=== PATIENT | male | born 1955 | race African-American/Black ===

== ENCOUNTER 2016-11-04 13:14 | Inpatient (IN) | payer OTHER ==
[~2016-11-04] VITALS: Ht 188 cm; Wt 109.2 kg
[~2016-11-04 13:14] MED LIST: ASPI-556 PO; ATEN25 PO; BUPR150T3 PO; CABE0.5T2 PO; ESCI20TA PO; HYDR10 PO; POTA-9 PO; ZOLP10 PO
[2016-11-04] MEDS ORDERED: LOSA50TA37 PO (13:41)
[2016-11-04] MEDS ORDERED: SPIR25 PO (13:41)
[2016-11-04] MEDS ORDERED: AMLO-512 PO (13:41)
[2016-11-04] MEDS ORDERED: ATEN50TA PO (13:41)
[2016-11-04 14:11] LABS: BASOPHILS % (AUTO) 0.6 % (0.0-2.0); EOSINOPHILS % (AUTO) 4.3 % (1.0-6.0); HEMATOCRIT 37.6 % (41-53); HEMOGLOBIN 12.4 g/dL (13.5-17.5); LYMPHOCYTES # (AUTO) 1.1 K/uL (1.0-4.8); LYMPHOCYTES % (AUTO) 22.1 % (22.0-44.0); MEAN CORPUSCULAR HEMOGLOBIN 30.4 pg (26.0-34.0); MEAN CORPUSCULAR VOLUME 92 fL (80-100); MONOCYTES # (AUTO) 0.6 K/uL (0.1-1.0); MONOCYTES % (AUTO) 12.3 % (2.0-9.0); NEUTROPHILS # (AUTO) 3.1 K/uL (1.8-7.7); NEUTROPHILS % (AUTO) 60.7 % (40.0-70.0); PLATELET COUNT (AUTO) 223 K/uL (150-450); RED BLOOD CELL COUNT(AUTO) 4.08 MIL/uL (4.50-5.90); RED CELL DISTRIBUTION WIDTH 14.7 % (11.5-14.5); WHITE BLOOD COUNT (AUTO) 5.1 K/uL (4.5-11.0)
[2016-11-04 14:23] LABS: PROTHROMBIN TIME 10.4 SEC (9.4-11.6)
[2016-11-04 14:30] LABS: ANION GAP 8 mmol/L (8-16); CALCIUM, TOTAL 9.5 mg/dL (8.8-10.5); CARBON DIOXIDE 27 mmol/L (22-29); CHLORIDE 105 mmol/L (98-107); CREATININE 1.58 mg/dL (0.60-1.30); GLOMERULAR FILTR. RATE CALC 54 mL/min (>60); POTASSIUM 3.7 mmol/L (3.5-5.1); SODIUM SERUM 140 mmol/L (136-145); UREA NITROGEN, BLOOD 33 mg/dL (7-18)
[2016-11-04 14:34] LABS: B-TYPE NATRIURETIC PEPTIDE 19 pg/mL (0-100)
[2016-11-04 14:54] LABS: ALANINE AMINOTRANSFERASE 18 U/L (12-78); ALBUMIN 3.6 g/dL (3.4-5.0); ASPARTATE AMINOTRANSFERASE 15 U/L (15-37); BILIRUBIN,TOTAL 0.2 mg/dL (0.1-1.0); CREATINE KINASE, TOTAL 214 U/L (39-308); TOTAL PROTEIN, SERUM 7.5 g/dL (6.4-8.2)
[2016-11-04] MEDS ORDERED: 0.9% SODIUM CHLORIDE 10 ML SYRINGE IVP PRN (15:45)
[2016-11-04] MEDS ORDERED: ACETAMINOPHEN 325 MG TABLET PO PRN ×2 (15:45→18:30)
[2016-11-04] MEDS ORDERED: ONDANSETRON HCL 4 MG/2 ML VIAL IVP PRN ×2 (15:45→18:30)
[2016-11-04 15:47] LABS: APPEARANCE,URINE CLEAR (CLEAR); GLUCOSE, URINE (UA) NEGATIVE (NEGATIVE); KETONES,URINE NEGATIVE (NEGATIVE); LEUKOCYTE ESTERASE ,URINE NEGATIVE (NEGATIVE); OCCULT BLOOD,URINE NEGATIVE (NEGATIVE); PROTEIN,URINE NEGATIVE (NEGATIVE)
[2016-11-04 15:52] LABS: ADD UA MICROSCOPIC NO
[2016-11-04] MEDS ORDERED: KDUR20 PO (15:54)
[2016-11-04] MEDS ORDERED: OxyCODONE HCL/ACETAMINOPHEN 5-325 MG TABLET PO PRN (18:30)
[2016-11-04] MEDS ORDERED: BISACODYL 10 MG RECTAL RECTAL SUPPOSITORY PR PRN (18:30)
[2016-11-04] MEDS ORDERED: MAGNESIUM HYDROXIDE SUSPENSION 30 ML UDCUP PO PRN (18:30)
[2016-11-04] MEDS ORDERED: ZOLPIDEM TARTRATE 10 MG TABLET PO PRN (18:30)
[2016-11-04 21:08] VITALS: BP 153/103
[2016-11-04] MEDS: HydrALAZINE HCL 10 MG TABLET PO SCH (21:17)
[2016-11-04 23:25] VITALS: BP 148/89
[2016-11-04] MEDS: HEPARIN SODIUM,PORCINE 5,000 UNITS/ML VIAL SQ SCH (23:57)
[2016-11-05] VITALS (8 sets, daily range): BP systolic 132–157; BP diastolic 64–100
[2016-11-05] MEDS ORDERED: INFLUENZA VIRUS VACCINE QVS 2016-17 (3YR+)/PF 60 MCG/0.5 ML SYRINGE IM ONE (05:15)
[2016-11-05 06:41] LABS: BASOPHILS % (AUTO) 0.6 % (0.0-2.0); EOSINOPHILS % (AUTO) 5.7 % (1.0-6.0); HEMATOCRIT 37.8 % (41-53); HEMOGLOBIN 12.2 g/dL (13.5-17.5); LYMPHOCYTES # (AUTO) 1.6 K/uL (1.0-4.8); LYMPHOCYTES % (AUTO) 34.5 % (22.0-44.0); MEAN CORPUSCULAR HEMOGLOBIN 29.9 pg (26.0-34.0); MEAN CORPUSCULAR HGB CONC 32.2 G/dL (31.0-37.0); MEAN CORPUSCULAR VOLUME 93 fL (80-100); MONOCYTES # (AUTO) 0.7 K/uL (0.1-1.0); MONOCYTES % (AUTO) 14.5 % (2.0-9.0); NEUTROPHILS % (AUTO) 44.7 % (40.0-70.0); PLATELET COUNT (AUTO) 207 K/uL (150-450); RED BLOOD CELL COUNT(AUTO) 4.07 MIL/uL (4.50-5.90); RED CELL DISTRIBUTION WIDTH 14.7 % (11.5-14.5); WHITE BLOOD COUNT (AUTO) 4.6 K/uL (4.5-11.0)
[2016-11-05 07:21] LABS: ALANINE AMINOTRANSFERASE 18 U/L (12-78); ALBUMIN 3.3 g/dL (3.4-5.0); ANION GAP 7 mmol/L (8-16); ASPARTATE AMINOTRANSFERASE 13 U/L (15-37); BILIRUBIN,TOTAL 0.4 mg/dL (0.1-1.0); CALCIUM, TOTAL 9.1 mg/dL (8.8-10.5); CARBON DIOXIDE 29 mmol/L (22-29); CHLORIDE 104 mmol/L (98-107); CREATININE 1.28 mg/dL (0.60-1.30); GLOMERULAR FILTR. RATE CALC > 60 mL/min (>60); POTASSIUM 3.5 mmol/L (3.5-5.1); SODIUM SERUM 140 mmol/L (136-145); TOTAL PROTEIN, SERUM 7.2 g/dL (6.4-8.2); UREA NITROGEN, BLOOD 23 mg/dL (7-18)
[2016-11-05] MEDS ORDERED: ATENOLOL 50 MG TABLET PO SCH (09:00)
[2016-11-05] MEDS: HEPARIN SODIUM,PORCINE 5,000 UNITS/ML VIAL SQ SCH ×2 (09:54→23:40)
[2016-11-05] MEDS: LOSARTAN POTASSIUM 50 MG TABLET PO SCH (09:54)
[2016-11-05] MEDS: AmLODIPine BESYLATE 10 MG TABLET PO SCH (09:54)
[2016-11-05] MEDS: ASPIRIN 81 MG EC TABLET PO SCH (09:54)
[2016-11-05] MEDS: PANTOPRAZOLE SODIUM 40 MG DR TABLET PO SCH (09:54)
[2016-11-05] MEDS: BuPROPion HCL 150 MG SR TABLET PO SCH (09:55)
[2016-11-05] MEDS: SPIRONOLACTONE 25 MG TABLET PO SCH (09:55)
[2016-11-05] MEDS: HydrALAZINE HCL 10 MG TABLET PO SCH (09:55)
[2016-11-05] MEDS: POTASSIUM CHLORIDE 20 MEQ ER TABLET PO SCH (10:20)
[2016-11-05] MEDS: HydrALAZINE HCL 25 MG TABLET PO SCH (21:00)
[2016-11-06 04:45] VITALS: BP 140/90
[2016-11-06 07:06] VITALS: BP 147/94
[2016-11-06] MEDS: HydrALAZINE HCL 25 MG TABLET PO SCH (08:04)
[2016-11-06] MEDS: PANTOPRAZOLE SODIUM 40 MG DR TABLET PO SCH (08:10)
[2016-11-06] MEDS: AmLODIPine BESYLATE 10 MG TABLET PO SCH (08:10)
[2016-11-06] MEDS: BuPROPion HCL 150 MG SR TABLET PO SCH (08:10)
[2016-11-06] MEDS: ASPIRIN 81 MG EC TABLET PO SCH (08:10)
[2016-11-06] MEDS: SPIRONOLACTONE 25 MG TABLET PO SCH (08:10)
[2016-11-06] MEDS: POTASSIUM CHLORIDE 20 MEQ ER TABLET PO SCH (08:11)
[2016-11-06] MEDS: HEPARIN SODIUM,PORCINE 5,000 UNITS/ML VIAL SQ SCH (08:11)
[2016-11-06] MEDS: LOSARTAN POTASSIUM 50 MG TABLET PO SCH (08:11)
[2016-11-06] MEDS ORDERED: ATENOLOL 25 MG TABLET PO SCH (09:00)
[2016-11-06 11:57] VITALS: BP 140/92
[2016-11-06] MEDS ORDERED: HYDR25 PO (13:42)
== END 2016-11-06 15:40 | disposition home or self-care (01) | DRG 313 ==
LOC: EMS 13:17 → 5S 18:29
PROVIDERS: ADMIT Hospitalist; ATTEND Hospitalist
DX: R07.89 Other chest pain (principal); N17.9 Acute kidney failure, unspecified; F32.9 Major depressive disorder, single episode, unspecified; D64.9 Anemia, unspecified; N18.9 Chronic kidney disease, unspecified; I25.2 Old myocardial infarction; I12.9 Hypertensive chronic kidney disease with stage 1 through stage 4 chronic kidney disease, or unspecified chronic kidney disease; M10.9 Gout, unspecified; R00.1 Bradycardia, unspecified; Z98.890 Other specified postprocedural states; Z79.899 Other long term (current) drug therapy; Z79.82 Long term (current) use of aspirin
CPT/HCPCS: 87081; 93005; 93306; 99285; J1644

== ENCOUNTER 2017-04-15 07:24 | Emergency (ER) | payer OTHER ==
[~2017-04-15] VITALS: Ht 182.9 cm; Wt 104.5 kg
[~2017-04-15 07:24] MED LIST changes: +AMLO-512 PO; -ATEN25 PO; +ATEN50TA PO; -CABE0.5T2 PO; -ESCI20TA PO; -HYDR10 PO; +HYDR25TA84 PO; +KDUR20 PO; +LOSA50TA37 PO; -POTA-9 PO; +SPIR25 PO
[2017-04-15] MEDS ORDERED: DEXAMETHASONE SOD PHOS 4 MG/ML VIAL IM ONE (11:15)
[2017-04-15 11:47] VITALS: BP 147/86
== END 2017-04-15 11:48 | disposition home or self-care (01) ==
LOC: EMS 07:25
DX: M19.072 Primary osteoarthritis, left ankle and foot (principal); M10.9 Gout, unspecified; I10 Essential (primary) hypertension; Z88.5 Allergy status to narcotic agent
CPT/HCPCS: 73630; 96372; 99284; J1100

== ENCOUNTER 2018-06-12 11:55 | Emergency (ER) | payer OTHER ==
[~2018-06-12] VITALS: Ht 180.3 cm; Wt 104.5 kg
[~2018-06-12 11:55] MED LIST changes: +LOSA50TA25 PO; -LOSA50TA37 PO; -ZOLP10 PO; +ZOLP10TA7 PO
[2018-06-12] MEDS: COLCHICINE 0.6 MG TABLET PO ONE (12:34)
[2018-06-12 13:15] VITALS: BP 132/75
== END 2018-06-12 13:38 | disposition home or self-care (01) ==
LOC: EMS 11:55
DX: M10.9 Gout, unspecified (principal); F32.9 Major depressive disorder, single episode, unspecified; I10 Essential (primary) hypertension; Z88.2 Allergy status to sulfonamides; Z79.82 Long term (current) use of aspirin
CPT/HCPCS: 99283

== ENCOUNTER 2020-01-26 20:04 | Emergency (ER) | payer OTHER ==
[~2020-01-26] VITALS: Ht 185.4 cm; Wt 104.5 kg
[~2020-01-26 20:04] MED LIST changes: -AMLO-512 PO; +AMLO10TA7 PO; +LOSA-88 PO; -LOSA50TA25 PO; +ZOLP-281 PO; -ZOLP10TA7 PO
[2020-01-26 22:25] VITALS: BP 132/84
[2020-01-26] MEDS ORDERED: COLCHICINE 0.6 MG TABLET PO ONE (22:30)
== END 2020-01-26 23:30 | disposition home or self-care (01) ==
LOC: EMS 20:06
DX: M10.9 Gout, unspecified (principal); I10 Essential (primary) hypertension; F32.9 Major depressive disorder, single episode, unspecified; Z88.5 Allergy status to narcotic agent; Z79.82 Long term (current) use of aspirin; Z79.899 Other long term (current) drug therapy

== ENCOUNTER 2020-07-30 13:00 | Inpatient (IN) | payer MEDICARE, OTHER ==
[~2020-07-30] VITALS: Ht 182.9 cm; Wt 98.9 kg
[~2020-07-30 13:00] MED LIST changes: +AMLO-258 PO; -AMLO10TA7 PO; +ASPI-1111 PO; -ASPI-556 PO; +ATEN-73 PO; -ATEN50TA PO; -KDUR20 PO; -LOSA-88 PO; +LOSA50TA37 PO; +POTA20TA83 PO; -ZOLP-281 PO; +ZOLP10TA8 PO
[2020-07-30] MEDS ORDERED: ACETAMINOPHEN 650 MG/20.3 ML SOLUTION UDCUP PO PRN (13:45)
[2020-07-30 14:26] VITALS: BP 143/99
[2020-07-30 15:30] VITALS: BP 151/96
[2020-07-30] MEDS ORDERED: INFLUENZA VIRUS VACCINE QVS 2020-21 (6MO+)/PF 60 MCG/0.5 ML SYRINGE IM ONE (16:00)
[2020-07-30 20:23] VITALS: BP 165/96
[2020-07-30] MEDS: PANTOPRAZOLE SODIUM 40 MG DR TABLET PO SCH (20:31)
[2020-07-30] MEDS: AmLODIPine BESYLATE 10 MG TABLET PO SCH (20:31)
[2020-07-30] MEDS: SENNA 187 MG TABLET PO SCH (20:31)
[2020-07-30] MEDS: DOCUSATE SODIUM 100 MG CAPSULE PO SCH (20:32)
[2020-07-30] MEDS: MELATONIN 5 MG TABLET PO PRN (20:32)
[2020-07-30] MEDS ORDERED: SENNA 187 MG TABLET PO SCH (21:00)
[2020-07-30] MEDS ORDERED: DOCUSATE SODIUM 100 MG CAPSULE PO SCH (21:00)
[2020-07-30 22:06] VITALS: BP 149/98
[2020-07-30 23:55] VITALS: BP 161/105
[2020-07-30] MEDS: 0.9% SODIUM CHLORIDE 10 ML SYRINGE IVP SCH (23:56)
[2020-07-31] VITALS (9 sets, daily range): BP systolic 138–171; BP diastolic 91–111
[2020-07-31] MEDS: HydrALAZINE HCL 10 MG TABLET PO PRN (00:04)
[2020-07-31 06:48] LABS: BASOPHILS % (AUTO) 0.5 % (0.0-2.0); HEMATOCRIT 45.5 % (41-53); HEMOGLOBIN 15.5 g/dL (13.5-17.5); LYMPHOCYTES % (AUTO) 18.2 % (22.0-44.0); MEAN CORPUSCULAR HEMOGLOBIN 32.1 pg (26.0-34.0); MEAN CORPUSCULAR HGB CONC 34.1 G/dL (31.0-37.0); MEAN CORPUSCULAR VOLUME 94 fL (80-100); MONOCYTES # (AUTO) 0.9 K/uL (0.1-1.0); MONOCYTES % (AUTO) 15.1 % (2.0-9.0); NEUTROPHILS # (AUTO) 3.6 K/uL (1.8-7.7); NEUTROPHILS % (AUTO) 62.2 % (40.0-70.0); PLATELET COUNT (AUTO) 236 K/uL (150-450); RED BLOOD CELL COUNT(AUTO) 4.85 MIL/uL (4.50-5.90); RED CELL DISTRIBUTION WIDTH 14.4 % (11.5-14.5)
[2020-07-31 07:06] LABS: ALBUMIN 3.4 g/dL (3.4-5.0); BILIRUBIN,TOTAL 0.9 mg/dL (0.1-1.0); CALCIUM, TOTAL 9.9 mg/dL (8.8-10.5); CREATININE 1.8 mg/dL (0.60-1.30); POTASSIUM 4.4 mmol/L (3.5-5.1); TOTAL PROTEIN, SERUM 7.8 g/dL (6.4-8.2)
[2020-07-31] MEDS: SPIRONOLACTONE 25 MG TABLET PO SCH (07:16)
[2020-07-31] MEDS: 0.9% SODIUM CHLORIDE 10 ML SYRINGE IVP SCH (07:22)
[2020-07-31] MEDS: BuPROPion HCL 150 MG SR TABLET PO SCH (08:05)
[2020-07-31] MEDS: POTASSIUM CHLORIDE 20 MEQ ER TABLET PO SCH (08:06)
[2020-07-31] MEDS: DOCUSATE SODIUM 100 MG CAPSULE PO SCH ×2 (08:06→20:36)
[2020-07-31] MEDS ORDERED: ATENOLOL 25 MG TABLET PO SCH (09:00)
[2020-07-31] MEDS: LOSARTAN POTASSIUM 50 MG TABLET PO SCH (09:00)
[2020-07-31] MEDS ORDERED: LOSARTAN POTASSIUM 50 MG TABLET PO SCH (09:00)
[2020-07-31] MEDS: ATENOLOL 25 MG TABLET PO SCH (09:06)
[2020-07-31] MEDS: HydrALAZINE HCL 25 MG TABLET PO SCH ×2 (09:06→20:36)
[2020-07-31] MEDS: AmLODIPine BESYLATE 10 MG TABLET PO SCH (20:36)
[2020-07-31] MEDS: PANTOPRAZOLE SODIUM 40 MG DR TABLET PO SCH (20:36)
[2020-07-31] MEDS: SENNA 187 MG TABLET PO SCH (20:36)
[2020-07-31] MEDS: MELATONIN 5 MG TABLET PO PRN (20:45)
[2020-08-01] VITALS (12 sets, daily range): BP systolic 143–171; BP diastolic 67–113
[2020-08-01] MEDS: HydrALAZINE HCL 10 MG TABLET PO PRN ×2 (00:54→09:38)
[2020-08-01] MEDS: ACETAMINOPHEN 325 MG TABLET PO PRN (00:54)
[2020-08-01] MEDS: HydrALAZINE HCL 25 MG TABLET PO SCH ×2 (07:00→17:58)
[2020-08-01] MEDS: POTASSIUM CHLORIDE 20 MEQ ER TABLET PO SCH (08:07)
[2020-08-01] MEDS: DOCUSATE SODIUM 100 MG CAPSULE PO SCH ×2 (08:07→20:02)
[2020-08-01] MEDS: BuPROPion HCL 150 MG SR TABLET PO SCH (08:07)
[2020-08-01] MEDS: ATENOLOL 25 MG TABLET PO SCH (08:08)
[2020-08-01] MEDS: SPIRONOLACTONE 25 MG TABLET PO SCH (08:08)
[2020-08-01] MEDS: LOSARTAN POTASSIUM 50 MG TABLET PO SCH (08:09)
[2020-08-01] MEDS ORDERED: HydrALAZINE HCL 25 MG TABLET PO PRN (15:45)
[2020-08-01] MEDS: SENNA 187 MG TABLET PO SCH (20:02)
[2020-08-01] MEDS: AmLODIPine BESYLATE 10 MG TABLET PO SCH (20:02)
[2020-08-01] MEDS: PANTOPRAZOLE SODIUM 40 MG DR TABLET PO SCH (20:02)
[2020-08-01] MEDS: MELATONIN 5 MG TABLET PO PRN (20:02)
[2020-08-02 02:10] VITALS: BP 160/90
[2020-08-02] MEDS: ACETAMINOPHEN 325 MG TABLET PO PRN (02:10)
[2020-08-02 06:00] VITALS: BP 148/66
[2020-08-02 07:34] VITALS: BP 170/101
[2020-08-02] MEDS: HydrALAZINE HCL 25 MG TABLET PO SCH ×2 (07:34→21:11)
[2020-08-02] MEDS: BuPROPion HCL 150 MG SR TABLET PO SCH (07:38)
[2020-08-02] MEDS: POTASSIUM CHLORIDE 20 MEQ ER TABLET PO SCH (07:38)
[2020-08-02] MEDS: DOCUSATE SODIUM 100 MG CAPSULE PO SCH ×2 (07:38→21:11)
[2020-08-02] MEDS: ATENOLOL 25 MG TABLET PO SCH (07:39)
[2020-08-02] MEDS: LOSARTAN POTASSIUM 50 MG TABLET PO SCH (07:39)
[2020-08-02] MEDS: SPIRONOLACTONE 25 MG TABLET PO SCH (07:39)
[2020-08-02 09:00] VITALS: BP 146/108
[2020-08-02 13:01] LABS: CALCIUM, TOTAL 9.8 mg/dL (8.8-10.5); CREATININE 1.83 mg/dL (0.60-1.30); POTASSIUM 4.9 mmol/L (3.5-5.1)
[2020-08-02 16:00] VITALS: BP 155/86
[2020-08-02] MEDS ORDERED: HydrALAZINE HCL 50 MG TABLET PO SCH ×2 (16:00→21:00)
[2020-08-02] MEDS ORDERED: PANT-31 PO (21:03)
[2020-08-02] MEDS ORDERED: DOCU-275 PO (21:03)
[2020-08-02] MEDS: PANTOPRAZOLE SODIUM 40 MG DR TABLET PO SCH (21:11)
[2020-08-02] MEDS: SENNA 187 MG TABLET PO SCH (21:11)
[2020-08-02] MEDS: AmLODIPine BESYLATE 10 MG TABLET PO SCH (21:11)
[2020-08-03 00:30] VITALS: BP 145/100
[2020-08-03] MEDS: MELATONIN 5 MG TABLET PO PRN ×2 (00:36→21:04)
[2020-08-03 08:00] VITALS: BP 145/95
[2020-08-03] MEDS: SPIRONOLACTONE 25 MG TABLET PO SCH (08:08)
[2020-08-03] MEDS: POTASSIUM CHLORIDE 20 MEQ ER TABLET PO SCH (08:08)
[2020-08-03] MEDS: DOCUSATE SODIUM 100 MG CAPSULE PO SCH ×2 (08:08→21:05)
[2020-08-03] MEDS: BuPROPion HCL 150 MG SR TABLET PO SCH (08:08)
[2020-08-03] MEDS: LOSARTAN POTASSIUM 50 MG TABLET PO SCH (08:09)
[2020-08-03] MEDS: HydrALAZINE HCL 25 MG TABLET PO SCH ×3 (08:11→21:05)
[2020-08-03 10:44] VITALS: BP 145/103
[2020-08-03 10:45] VITALS: BP 138/95
[2020-08-03 17:00] VITALS: BP 134/94
[2020-08-03] MEDS: AmLODIPine BESYLATE 10 MG TABLET PO SCH (21:05)
[2020-08-03] MEDS: PANTOPRAZOLE SODIUM 40 MG DR TABLET PO SCH (21:05)
[2020-08-03] MEDS: SENNA 187 MG TABLET PO SCH (21:05)
[2020-08-03 21:13] VITALS: BP 145/94
[2020-08-04 00:11] VITALS: BP 145/93
[2020-08-04] MEDS: ACETAMINOPHEN 325 MG TABLET PO PRN (02:15)
[2020-08-04] MEDS: DOCUSATE SODIUM 100 MG CAPSULE PO SCH ×2 (08:03→20:10)
[2020-08-04] MEDS: POTASSIUM CHLORIDE 20 MEQ ER TABLET PO SCH (08:03)
[2020-08-04] MEDS: BuPROPion HCL 150 MG SR TABLET PO SCH (08:03)
[2020-08-04] MEDS: HydrALAZINE HCL 25 MG TABLET PO SCH ×3 (08:03→20:10)
[2020-08-04] MEDS: LOSARTAN POTASSIUM 50 MG TABLET PO SCH (08:04)
[2020-08-04] MEDS: SPIRONOLACTONE 25 MG TABLET PO SCH (08:04)
[2020-08-04 09:03] VITALS: BP 152/105
[2020-08-04 10:00] VITALS: BP 139/103
[2020-08-04 16:46] VITALS: BP 127/101
[2020-08-04] MEDS: SENNA 187 MG TABLET PO SCH (20:10)
[2020-08-04] MEDS: MELATONIN 5 MG TABLET PO PRN (20:10)
[2020-08-04] MEDS: AmLODIPine BESYLATE 10 MG TABLET PO SCH (20:10)
[2020-08-04] MEDS: PANTOPRAZOLE SODIUM 40 MG DR TABLET PO SCH (20:10)
[2020-08-05 06:06] VITALS: BP 139/98
[2020-08-05 07:17] LABS: CREATININE 1.95 mg/dL (0.60-1.30); POTASSIUM 4.5 mmol/L (3.5-5.1)
[2020-08-05] MEDS: BuPROPion HCL 150 MG SR TABLET PO SCH (08:54)
[2020-08-05] MEDS: POTASSIUM CHLORIDE 20 MEQ ER TABLET PO SCH (08:54)
[2020-08-05] MEDS: DOCUSATE SODIUM 100 MG CAPSULE PO SCH (08:55)
[2020-08-05] MEDS: SPIRONOLACTONE 25 MG TABLET PO SCH (08:55)
[2020-08-05] MEDS: LOSARTAN POTASSIUM 50 MG TABLET PO SCH (08:56)
[2020-08-05] MEDS: HydrALAZINE HCL 25 MG TABLET PO SCH (08:56)
[2020-08-05 09:37] VITALS: BP 149/96
== END 2020-08-05 13:00 | disposition home or self-care (01) | DRG 65 ==
LOC: 2WR 13:00
PROVIDERS: ADMIT Physical Medicine & Rehabilitation; ATTEND Physical Medicine & Rehabilitation
DX: I61.9 Nontraumatic intracerebral hemorrhage, unspecified (principal); R47.01 Aphasia; R53.81 Other malaise; I10 Essential (primary) hypertension; R26.9 Unspecified abnormalities of gait and mobility; N18.9 Chronic kidney disease, unspecified; F32.9 Major depressive disorder, single episode, unspecified; M10.9 Gout, unspecified
CPT/HCPCS: 87081; 90686; 92507; 92610; 93970; 97110; 97112; 97116; 97150; 97161; 97530; 97535; 99366

== ENCOUNTER 2020-11-14 12:20 | Emergency (ER) | payer MEDICARE, OTHER ==
[~2020-11-14] VITALS: Ht 182.9 cm; Wt 97.7 kg
[~2020-11-14 12:20] MED LIST changes: -ASPI-1111 PO; -ATEN-73 PO; +CARV12 PO; +DOCU-270 PO; -HYDR25TA84 PO; +HYDR50TA36 PO; +LOSA50TA2 PO; -LOSA50TA37 PO; +PANT-31 PO; +POTA-206 PO; -POTA20TA83 PO; +SPIR-37 PO; -SPIR25 PO; -ZOLP10TA8 PO
[2020-11-14] MEDS ORDERED: INDO50CA97 PO (13:15)
[2020-11-14 14:13] VITALS: BP 120/82
== END 2020-11-14 15:00 | disposition home or self-care (01) ==
LOC: EMS 12:20
DX: M10.9 Gout, unspecified (principal); I10 Essential (primary) hypertension; F32.9 Major depressive disorder, single episode, unspecified; Z86.73 Personal history of transient ischemic attack (TIA), and cerebral infarction without residual deficits; Z88.5 Allergy status to narcotic agent; Z88.8 Allergy status to other drugs, medicaments and biological substances
CPT/HCPCS: 99283; Z7502

== ENCOUNTER 2021-04-01 07:08 | Emergency (ER) | payer MEDICARE, OTHER ==
[~2021-04-01] VITALS: Ht 182.9 cm; Wt 100.0 kg
[~2021-04-01 07:08] MED LIST changes: -DOCU-270 PO; +DOCU-275 PO; +INDO50CA97 PO; -POTA-206 PO; +POTA20TA83 PO
[2021-04-01 07:35] VITALS: BP 139/102
[2021-04-01] MEDS ORDERED: NIFE-64 PO (07:48)
[2021-04-01] MEDS ORDERED: ASPI-1227 PO (07:48)
[2021-04-01] MEDS ORDERED: EPLE25TA10 PO (07:48)
[2021-04-01] MEDS ORDERED: ESCI20TA87 PO (07:48)
[2021-04-01] MEDS ORDERED: ALEN10TA33 PO (07:48)
[2021-04-01] MEDS ORDERED: CABE0.5T2 PO (07:48)
== END 2021-04-01 08:11 | disposition home or self-care (01) ==
LOC: EMS 07:09
DX: M10.9 Gout, unspecified (principal); Z76.0 Encounter for issue of repeat prescription; F32.9 Major depressive disorder, single episode, unspecified; I10 Essential (primary) hypertension; Z88.5 Allergy status to narcotic agent; Z79.899 Other long term (current) drug therapy
CPT/HCPCS: 99281; Z7502

== ENCOUNTER 2022-07-29 16:28 | Emergency (ER) | payer MEDICARE, OTHER ==
[~2022-07-29] VITALS: Ht 188 cm; Wt 98.2 kg
[~2022-07-29 16:28] MED LIST changes: +ALEN10TA33 PO; -AMLO-258 PO; +ASPI-1227 PO; +CABE0.5T2 PO; -CARV12 PO; -DOCU-275 PO; +DOCU-385 PO; +EPLE25TA10 PO; +ESCI20TA87 PO; -HYDR50TA36 PO; +NIFE-64 PO; -POTA20TA83 PO; -SPIR-37 PO
[2022-07-29 16:30] VITALS: BP 132/89
[2022-07-29] MEDS ORDERED: ACET-2080 PO (16:55)
[2022-07-29] MEDS ORDERED: INDO50CA97 PO (16:55)
[2022-07-29] MEDS ORDERED: COLC0.6T73 PO (16:55)
== END 2022-07-29 17:03 | disposition home or self-care (01) ==
LOC: EMS 16:28
DX: M10.9 Gout, unspecified (principal); I63.9 Cerebral infarction, unspecified; F32.A Depression, unspecified; I10 Essential (primary) hypertension; I21.9 Acute myocardial infarction, unspecified; Z88.5 Allergy status to narcotic agent
CPT/HCPCS: 99283; Z7502

== ENCOUNTER 2023-01-02 06:07 | Emergency (ER) | payer OTHER ==
[~2023-01-02] VITALS: Ht 182.9 cm; Wt 102.3 kg
[~2023-01-02 06:07] MED LIST changes: +ACET-2080 PO; +COLC0.6T73 PO
[2023-01-02 06:16] VITALS: BP 152/99
[2023-01-02] MEDS ORDERED: AMLO-258 PO (06:24)
[2023-01-02] MEDS ORDERED: HYDR50TA36 PO (06:24)
[2023-01-02] MEDS ORDERED: CARV25 PO (06:24)
[2023-01-02] MEDS ORDERED: INDO50CA97 PO (06:28)
[2023-01-02] MEDS ORDERED: INDOMETHACIN 50 MG CAPSULE PO ONE (06:30)
== END 2023-01-02 07:27 | disposition home or self-care (01) ==
LOC: EMS 06:12
DX: M10.071 Idiopathic gout, right ankle and foot (principal); F32.A Depression, unspecified; I10 Essential (primary) hypertension; Z98.890 Other specified postprocedural states
CPT/HCPCS: 99283

== ENCOUNTER 2023-10-05 15:55 | Emergency (ER) | payer MEDICARE, OTHER ==
[~2023-10-05] VITALS: Ht 185.4 cm; Wt 97.0 kg
[~2023-10-05 15:55] MED LIST changes: -ACET-2080 PO; -ALEN10TA33 PO; +AMLO-258 PO; +CARV25 PO; +HYDR50TA36 PO; +LOSA-418 PO; -LOSA50TA2 PO
[2023-10-05 16:05] VITALS: BP 137/93; PULSE 74; RESP 16; TEMP 98.2
[2023-10-05 16:11] LABS: COVID AG,FIA SOURCE NASAL SWAB
[2023-10-05 16:32] LABS: INFLUENZA TYPE A NEGATIVE FOR TYPE A (NEGATIVE); INFLUENZA TYPE B NEGATIVE FOR TYPE B (NEGATIVE)
[2023-10-05 16:33] LABS: SARS-COV2 (COVID) ANTIGEN,FIA Negative (Negative)
[2023-10-05] MEDS ORDERED: IBUP-1554 PO (17:46)
[2023-10-05] MEDS ORDERED: GUAIFDM PO (17:46)
[2023-10-05] MEDS ORDERED: ACET-66 PO (17:46)
== END 2023-10-05 18:12 | disposition home or self-care (01) ==
LOC: EMS 15:57
DX: J06.9 Acute upper respiratory infection, unspecified (principal); M19.90 Unspecified osteoarthritis, unspecified site; F32.A Depression, unspecified; I10 Essential (primary) hypertension; Z98.890 Other specified postprocedural states; Z88.6 Allergy status to analgesic agent; Z88.8 Allergy status to other drugs, medicaments and biological substances; Z20.822 Contact with and (suspected) exposure to COVID-19
CPT/HCPCS: 87804; 99283

== ENCOUNTER 2023-12-18 06:46 | Emergency (ER) | payer OTHER ==
[~2023-12-18] VITALS: Ht 180.3 cm; Wt 97.7 kg
[~2023-12-18 06:46] MED LIST changes: +ACET-66 PO; -ASPI-1227 PO; -DOCU-385 PO; -EPLE25TA10 PO; +GUAIFDM PO; -HYDR50TA36 PO; +IBUP-1554 PO; -INDO50CA97 PO
[2023-12-18 06:59] VITALS: BP 115/73; PULSE 61; RESP 18; TEMP 97.9
[2023-12-18] MEDS ORDERED: SERT-162 PO (07:08)
[2023-12-18] MEDS ORDERED: CABE0.5T2 PO (07:08)
[2023-12-18] MEDS ORDERED: CHL25 PO (07:08)
[2023-12-18] MEDS ORDERED: PANT-31 PO (07:08)
[2023-12-18] MEDS ORDERED: FERR-82 PO (07:08)
[2023-12-18] MEDS ORDERED: LOSA25TA41 PO (07:08)
[2023-12-18] MEDS ORDERED: EPLE25TA10 PO (07:08)
[2023-12-18] MEDS ORDERED: PRED-554 PO (07:19)
[2023-12-18] MEDS ORDERED: HYDR-4723 PO (07:19)
[2023-12-18] MEDS: ACETAMINOPHEN 500 MG TABLET PO ONE (07:44)
[2023-12-18] MEDS: PredniSONE 20 MG TABLET PO ONE (07:44)
== END 2023-12-18 07:55 | disposition home or self-care (01) ==
LOC: EMS 06:48
DX: M10.9 Gout, unspecified (principal); I10 Essential (primary) hypertension; I25.2 Old myocardial infarction; I25.10 Atherosclerotic heart disease of native coronary artery without angina pectoris; F32.A Depression, unspecified; N18.9 Chronic kidney disease, unspecified; Z88.5 Allergy status to narcotic agent
CPT/HCPCS: 99283; J7512

== ENCOUNTER 2024-04-03 04:45 | Emergency (ER) | payer OTHER ==
[~2024-04-03] VITALS: Ht 182.9 cm; Wt 95.0 kg
[~2024-04-03 04:45] MED LIST changes: -ACET-66 PO; -AMLO-258 PO; -BUPR150T3 PO; +CHL25 PO; -COLC0.6T73 PO; +EPLE25TA11 PO; -ESCI20TA87 PO; +FERR-82 PO; -GUAIFDM PO; +HYDR-4062 PO; -IBUP-1554 PO; -LOSA-418 PO; +LOSA25TA41 PO; -NIFE-64 PO; +PRED-554 PO; +SERT-162 PO
[2024-04-03 04:50] VITALS: TEMP 97.9
[2024-04-03] MEDS ORDERED: COLC-3 PO (04:58)
[2024-04-03] MEDS ORDERED: INDO50CA97 PO (04:58)
[2024-04-03] MEDS: TraMADol HCL 50 MG TABLET PO ONE (05:08)
[2024-04-03] MEDS: COLCHICINE 0.6 MG TABLET PO ONE (05:08)
[2024-04-03] MEDS: MethylPREDNISolone SOD SUCC 125 MG/2 ML VIAL IM ONE (05:08)
[2024-04-03] MEDS ORDERED: PRED-554 PO (05:42)
[2024-04-03] MEDS ORDERED: TRAM50TA5 PO (05:42)
[2024-04-03 05:47] VITALS: BP 127/81; PULSE 56; RESP 16
== END 2024-04-03 05:54 | disposition home or self-care (01) ==
LOC: EMS 04:46
DX: M10.9 Gout, unspecified (principal); I10 Essential (primary) hypertension; I25.2 Old myocardial infarction; M19.90 Unspecified osteoarthritis, unspecified site; F32.A Depression, unspecified; Z88.5 Allergy status to narcotic agent
CPT/HCPCS: 99283; 96372; J2919

== ENCOUNTER 2024-11-01 12:19 | Emergency (ER) | payer OTHER ==
[~2024-11-01] VITALS: Ht 188 cm; Wt 90.9 kg
[~2024-11-01 12:19] MED LIST changes: +COLC-3 PO; -EPLE25TA11 PO; +EPLE25TA24 PO; +INDO50CA97 PO; +TRAM50TA5 PO
[2024-11-01 12:25] VITALS: BP 138/81; PULSE 68; RESP 16; TEMP 97.7; O2SAT 98
[2024-11-01] MEDS: HYDROCODONE/ACETAMINOPHEN 5-325 MG TABLET PO ONE (15:17)
[2024-11-01 15:27] LABS: BASOPHILS % (AUTO) 0.6 % (0.0-2.0); EOSINOPHILS % (AUTO) 3.3 % (1.0-6.0); HEMATOCRIT 36.3 % (41-53); HEMOGLOBIN 11.8 g/dL (13.5-17.5); LYMPHOCYTES # (AUTO) 1.1 K/uL (1.0-4.8); MEAN CORPUSCULAR HEMOGLOBIN 31.3 pg (26.0-34.0); MEAN CORPUSCULAR HGB CONC 32.5 G/dL (31.0-37.0); MEAN CORPUSCULAR VOLUME 97 fL (80-100); MONOCYTES # (AUTO) 1.1 K/uL (0.1-1.0); MONOCYTES % (AUTO) 18.4 % (2.0-9.0); NEUTROPHILS # (AUTO) 3.6 K/uL (1.8-7.7); NEUTROPHILS % (AUTO) 59.7 % (40.0-70.0); PLATELET COUNT (AUTO) 163 K/uL (150-450); RED BLOOD CELL COUNT(AUTO) 3.76 MIL/uL (4.50-5.90); RED CELL DISTRIBUTION WIDTH 14.1 % (11.5-14.5)
[2024-11-01 15:34] LABS: CALCIUM, TOTAL 9.6 mg/dL (8.8-10.5); CREATININE 1.59 mg/dL (0.60-1.30)
[2024-11-01] MEDS: COLCHICINE 0.6 MG TABLET PO ONE (15:59)
[2024-11-01] MEDS ORDERED: HYDR-4072 PO (16:15)
== END 2024-11-01 16:28 | disposition home or self-care (01) ==
LOC: EMS 12:19
DX: M10.9 Gout, unspecified (principal); I10 Essential (primary) hypertension; F32.A Depression, unspecified; Z88.5 Allergy status to narcotic agent; Z79.52 Long term (current) use of systemic steroids; Z79.899 Other long term (current) drug therapy
CPT/HCPCS: 80048; 85025; 99283

== ENCOUNTER 2025-04-10 17:25 | Emergency (ER) | payer OTHER ==
[~2025-04-10] VITALS: Ht 180.3 cm; Wt 84.1 kg
[~2025-04-10 17:25] MED LIST changes: +HYDR-4072 PO
[2025-04-10 17:35] VITALS: TEMP 97.4
[2025-04-10 19:22] VITALS: BP 141/70; PULSE 55; RESP 17; O2SAT 98
== END 2025-04-10 19:34 | disposition still patient (30) ==
LOC: EMS 17:25
DX: R42 Dizziness and giddiness (principal); M19.90 Unspecified osteoarthritis, unspecified site; F32.A Depression, unspecified; I10 Essential (primary) hypertension; M10.9 Gout, unspecified; Z86.73 Personal history of transient ischemic attack (TIA), and cerebral infarction without residual deficits; Z88.5 Allergy status to narcotic agent; Z79.52 Long term (current) use of systemic steroids; Z79.899 Other long term (current) drug therapy; X14.0XXA Inhalation of hot air and gases, initial encounter
CPT/HCPCS: 99282; Z7502